=== PATIENT | female | born 1995 | race Caucasian/White ===

== ENCOUNTER 2017-10-20 22:05 | Inpatient (IN) | payer BC ==
[~2017-10-20] VITALS: Ht 160 cm; Wt 49.4 kg
[~2017-10-20 22:05] MED LIST: ALB18R INH; CEFP100T7 PO; CEPH250C37 PO; ENOX60DI10 SQ; ENOX60DI8 SQ; HYDR-385 PO; LOR5/325 PO; NITR-105 PO; OMEP40CA48 PO; ONDA4TAB PO; ONDA4TAB97 PO; PREN-123 PO; PREN-127 PO; SULF-198 PO; TRAM-420 PO; WARF-1 PO; WARF1TAB63 PO
--- NOTE | 2017-10-20 22:08 | ER Report ---
History and Physical Time Seen By MD: 22:06 HPI/ROS CHIEF COMPLAINT: Hyperglycemia HISTORY OF PRESENT ILLNESS: 22-year-old female with a known history of gestational diabetes, pulmonary embolism, asthma, presents with several days of not feeling well. She's had severe nausea. Today she noted her blood glucose was over 500. She was feeling near syncopal. She is concerned she may be . She's not done a home test. Her last menstrual period was 09/15/17. She's had continued bleeding for 3 weeks. She had her control implant removed on 10/02/17. She denies nausea or vomiting. She denies diarrhea or dysuria. He is does not extreme thirst. She also notes increased urination. REVIEW OF SYSTEMS: Respiratory: No cough, no dyspnea. Cardiovascular: No chest pain, no palpitations. Gastrointestinal: No vomiting, no abdominal pain. Musculoskeletal: No back pain. Allergies: Coded Allergies: Penicillins (Verified Allergy, Severe, ANAPHYLAXIS, 09/15/17) Home Meds Reported Medications Vits W-Ca,Fe,Fa(<1MG) ( VITAMINS) 1 Each Tablet, 1 EACH PO DAILY, TAB 10/20/17 Discontinued Reported Medications Albuterol Sulfate (VENTOLIN HFA) 18 Gm Inh, 1-2 PUFF INH 3-4XD, INH 09/13/17 Discontinued Scripts Sulfamethoxazole/Trimet 800-160 Mg Tab (BACTRIM DS TABLET) 1 Each Tablet, 1 TAB PO Q12H, #20 TAB Prov:TERRY LYNN REVERSE UNIT OPERATOR 09/13/17 Past Medical/Surgical History Past medical history: Asthma, pulmonary embolism, twin 1-1/2 years ago, still born 8 months ago Reviewed Nurses Notes: Yes Old Medical Records Reviewed: Yes Hx Smoking: No Smoking Status: Never Smoker Constitutional Vital Sign - Last 24 Hours 10/20/17 10/20/17 10/20/17 10/20/17 22:05 22:14 22:14 22:20 Temp 98.7 Pulse ??? 96 88 Resp 18 B/P (MAP) 131/107 131/107 (115) Pulse Ox 94 99 O2 Delivery Room Air 10/20/17 10/20/17 10/20/17 10/20/17 22:31 22:32 22:35 22:50 Pulse 99 87 B/P (MAP) 123/94 (104) 123/82 (96) Pulse Ox 98 98 10/20/17 10/20/17 10/20/17 10/20/17 23:05 23:08 23:13 23:28 Pulse 83 97 87 Resp 15 14 B/P (MAP) 112/77 (89) Pulse Ox 95 98 98 10/20/17 10/20/17 10/20/17 10/21/17 23:30 23:43 23:58 00:00 Pulse 89 92 Resp 14 15 B/P (MAP) 116/76 (89) 109/67 (81) Pulse Ox 96 99 10/21/17 00:05 Pulse 102 Resp 18 Pulse Ox 100 Physical Exam General Appearance: The patient is alert, has no immediate need for airway protection and no current signs of toxicity. Slightly pale appearing, skin warm and dry HEENT: Pupils equal and round no injection. Oropharynx with moderate erythema, trace exudate, mucous. Membranes are dry Respiratory: Chest is non tender, lungs are clear to auscultation. Cardiac: regular rate and rhythm Gastrointestinal: Abdomen is soft and non tender, no masses, bowel sounds normal. Musculoskeletal: Neck: Neck is supple and non tender. No lymphadenopathy Extremities have full range of motion and are non tender. Skin: No rashes or lesions. DIFFERENTIAL DIAGNOSIS: After history and physical exam differential diagnosis was considered for hyperglycemia, type II diabetes, type I diabetes, diabetic ketoacidosis, viral syndrome, gastroenteritis Medical Decision Making Data Points Result Diagram: 10/20/17231810/20/172318 Laboratory Hematology Test 10/20/17 00:00 10/20/17 22:25 10/20/17 23:19 Urine HCG, Qualitative Negative (NEGATIVE) Urine Color Colorless Urine Clarity Slightly-cloudy Urine pH 5.0 pH (4.8-9.5) Urine Specific [place] 1.026 Urine Protein Negative mg/dL (NEGATIVE) Urine Glucose (UA) 500 mg/dL (NEGATIVE) Urine Ketones 80 mg/dL (NEGATIVE) Urine Blood Small (NEGATIVE) Urine Nitrite Negative (NEGATIVE) Urine Bilirubin Negative (NEGATIVE) Urine Urobilinogen Negative mg/dL (0.2-1.9) Urine Leukocyte Esterase Small (NEGATIVE) Urine RBC 5 /HPF (0-2/HPF) Urine WBC 31 /HPF (0-5/HPF) Urine Squamous Epithelial Cells Many /LPF (</=FEW) Urine Bacteria Negative /HPF (NONE-FEW) Urine Mucus None /HPF (NONE-FEW) Red Blood Count 5.76 M/uL (4.17-5.56) Mean Corpuscular Volume 86.9 fL (80.0-96.0) Mean Corpuscular Hemoglobin 28.9 pg (26.0-33.0) Mean Corpuscular Hemoglobin Concent 33.3 g/dL (32.0-36.0) Red Cell Distribution Width 14.3 % (11.5-14.5) Mean Platelet Volume 8.7 fL (7.2-11.1) Neutrophils (%) (Auto) 58.0 % (39.4-72.5) Lymphocytes (%) (Auto) 31.8 % (17.6-49.6) Monocytes (%) (Auto) 7.8 % (4.1-12.4) Eosinophils (%) (Auto) 1.4 % (0.4-6.7) Basophils (%) (Auto) 1.0 % (0.3-1.4) Nucleated RBC Relative Count (auto) 0.1 /100WBC Neutrophils # (Auto) 4.9 K/uL (2.0-7.4) Lymphocytes # (Auto) 2.7 K/uL (1.3-3.6) Monocytes # (Auto) 0.7 K/uL (0.3-1.0) Eosinophils # (Auto) 0.1 K/uL (0.0-0.5) Basophils # (Auto) 0.1 K/uL (0.0-0.1) Nucleated RBC Absolute Count (auto) 0.01 K/uL Venous Blood pH 7.15 (7.31-7.41) Sodium Level 132 mmol/L (137-145) Potassium Level 3.9 mmol/L (3.5-5.0) Chloride Level 98 mmol/L (98-107) Carbon Dioxide Level 7 mmol/L (22-31) Blood Urea Nitrogen 13 mg/dl (7-18) Creatinine 0.80 mg/dl (0.52-1.04) Glomerular Filtration Rate Calc > 60.0 Random Glucose 500 mg/dl (75-110) Calcium Level 8.6 mg/dl (8.4-10.2) Total Bilirubin 0.4 mg/dl (0.2-1.3) Aspartate Amino Transf (AST/SGOT) 12 U/L (0-35) Alanine Aminotransferase (ALT/SGPT) 33 U/L (0-56) Alkaline Phosphatase 101 U/L (0-126) Total Protein 6.9 gm/dl (6.3-8.2) Albumin 4.4 g/dl (3.5-5.0) Amylase Level < 30 U/L (0-110) Lipase 175 U/L (23-300) Acetone, Qualitative Moderate Chemistry Test 10/20/17 00:00 10/20/17 22:25 10/20/17 23:19 Urine HCG, Qualitative Negative (NEGATIVE) Urine Color Colorless Urine Clarity Slightly-cloudy Urine pH 5.0 pH (4.8-9.5) Urine Specific [place] 1.026 Urine Protein Negative mg/dL (NEGATIVE) Urine Glucose (UA) 500 mg/dL (NEGATIVE) Urine Ketones 80 mg/dL (NEGATIVE) Urine Blood Small (NEGATIVE) Urine Nitrite Negative (NEGATIVE) Urine Bilirubin Negative (NEGATIVE) Urine Urobilinogen Negative mg/dL (0.2-1.9) Urine Leukocyte Esterase Small (NEGATIVE) Urine RBC 5 /HPF (0-2/HPF) Urine WBC 31 /HPF (0-5/HPF) Urine Squamous Epithelial Cells Many /LPF (</=FEW) Urine Bacteria Negative /HPF (NONE-FEW) Urine Mucus None /HPF (NONE-FEW) White Blood Count 8.4 k/uL (4.5-11.0) Red Blood Count 5.76 M/uL (4.17-5.56) Hemoglobin 16.7 g/dL (12.0-16.0) Hematocrit 50.1 % (34.0-47.0) Mean Corpuscular Volume 86.9 fL (80.0-96.0) Mean Corpuscular Hemoglobin 28.9 pg (26.0-33.0) Mean Corpuscular Hemoglobin Concent 33.3 g/dL (32.0-36.0) Red Cell Distribution Width 14.3 % (11.5-14.5) Platelet Count 209 K/uL (150-450) Mean Platelet Volume 8.7 fL (7.2-11.1) Neutrophils (%) (Auto) 58.0 % (39.4-72.5) Lymphocytes (%) (Auto) 31.8 % (17.6-49.6) Monocytes (%) (Auto) 7.8 % (4.1-12.4) Eosinophils (%) (Auto) 1.4 % (0.4-6.7) Basophils (%) (Auto) 1.0 % (0.3-1.4) Nucleated RBC Relative Count (auto) 0.1 /100WBC Neutrophils # (Auto) 4.9 K/uL (2.0-7.4) Lymphocytes # (Auto) 2.7 K/uL (1.3-3.6) Monocytes # (Auto) 0.7 K/uL (0.3-1.0) Eosinophils # (Auto) 0.1 K/uL (0.0-0.5) Basophils # (Auto) 0.1 K/uL (0.0-0.1) Nucleated RBC Absolute Count (auto) 0.01 K/uL Venous Blood pH 7.15 (7.31-7.41) Glomerular Filtration Rate Calc > 60.0 Calcium Level 8.6 mg/dl (8.4-10.2) Total Bilirubin 0.4 mg/dl (0.2-1.3) Aspartate Amino Transf (AST/SGOT) 12 U/L (0-35) Alanine Aminotransferase (ALT/SGPT) 33 U/L (0-56) Alkaline Phosphatase 101 U/L (0-126) Total Protein 6.9 gm/dl (6.3-8.2) Albumin 4.4 g/dl (3.5-5.0) Amylase Level < 30 U/L (0-110) Lipase 175 U/L (23-300) Acetone, Qualitative Moderate Toxicology Test 10/20/17 23:19 Acetone, Qualitative Moderate Urinalysis Test 10/20/17 00:00 10/20/17 22:25 Urine HCG, Qualitative Negative (NEGATIVE) Urine Color Colorless Urine Clarity Slightly-cloudy Urine pH 5.0 pH (4.8-9.5) Urine Specific [place] 1.026 Urine Protein Negative mg/dL (NEGATIVE) Urine Glucose (UA) 500 mg/dL (NEGATIVE) Urine Ketones 80 mg/dL (NEGATIVE) Urine Blood Small (NEGATIVE) Urine Nitrite Negative (NEGATIVE) Urine Bilirubin Negative (NEGATIVE) Urine Urobilinogen Negative mg/dL (0.2-1.9) Urine Leukocyte Esterase Small (NEGATIVE) Urine RBC 5 /HPF (0-2/HPF) Urine WBC 31 /HPF (0-5/HPF) Urine Squamous Epithelial Cells Many /LPF (</=FEW) Urine Bacteria Negative /HPF (NONE-FEW) Urine Mucus None /HPF (NONE-FEW) ED Course/Re-evaluation Clinical Indication for ER IV: Hydration, IV Access ED Course Patient was admitted to an examination room. H&P was done. The differential diagnoses was considered. On clinical examination. Patient with elevated glucose. She's been having thirst and nausea for several days. She has a known history of gestational diabetes with her last . Patient a blood glucose at home noted at 550. Patient presents to the ER for evaluation. Urinalysis shows ketones and glucose. She's got. Metabolic acidosis. Acetone is elevated. Patient's treated with IV fluid hydration, Zofran 4 mg sublingual. Patient was treated with regular insulin 10 units IV. On reevaluation one hour. Her blood glucose came down to 365. Insulin drip was initiated at 5 units per hour. A 2nd liter of normal saline was initiated. Patient was admitted to Dr. Worrell hospitalist on-call, who accepts the patient for admission. 10/20/2017 23:49:48 pm case discussed with Dr. Worrell Decision to Disposition Date: Oct 20, 2017 Decision to Disposition Time: 23:41 Critical Care Time I spent a total of 60 minutes of critical care time in obtaining history, performing a physical exam, bedside monitoring of interventions, collecting and interpreting tests and discussion with consultants but not including time spent performing procedures. Depart Departure Latest Vital Signs Vital Signs Date Time Temp Pulse Resp B/P (MAP) Pulse Ox O2 Delivery O2 Flow Rate FiO2 10/21/17 00:05 102 18 100 10/21/17 00:00 109/67 (81) 10/20/17 22:14 98.7 Room Air Impression: Primary Impression: DKA (diabetic ketoacidoses) Additional Impression: History of gestational diabetes Condition: Improved Disposition: Admitted from ER Referrals: MICHELLE SOLOMON MD (PCP) Problem Qualifiers Primary Impression: DKA (diabetic ketoacidoses) Diabetes mellitus type: type 1 Diabetes mellitus complication detail: without coma Qualified Codes: E10.10 - Type 1 diabetes mellitus with ketoacidosis without coma KIRAN GURROLA DO Oct 20, 2017 22:07
[2017-10-20] MEDS ORDERED: NS(*) 0.9% 1000 ML BAG 1,000 ML IV ONE (22:16)
[2017-10-20] MEDS ORDERED: PREN-127 PO (22:24)
[2017-10-20] MEDS ORDERED: ONDANSETRON 4 MG ODT TABDP SL ONE (22:55)
[2017-10-20] MEDS ORDERED: INSU HUM REG 100 U/ML(ER ONLY) 10 ML VIAL IV ONE (23:20)
[2017-10-20 23:30] LABS: PLATELET COUNT, AUTOMATED 209 K/uL (150-450)
[2017-10-21] VITALS (16 sets, daily range): BP systolic 100–125; BP diastolic 58–81; Ht 160 cm; Wt 49.4 kg
[2017-10-21] MEDS ORDERED: NS(*) 0.9% 100 ML BAG 100 ML ONE (00:11)
[2017-10-21] MEDS ORDERED: NS(*) 0.9% 500 ML BAG 500 ML ONE (01:21)
[2017-10-21] MEDS ORDERED: NS(*) 0.9% 1000 ML BAG 1,000 ML IV PRN (01:35)
[2017-10-21] MEDS ORDERED: ACETAMINOPHEN(*)1000 MG/100 ML 100 ML IVPB PRN ×2 (01:40→01:45)
[2017-10-21] MEDS ORDERED: ONDANSETRON 4 MG/2 ML VIAL IVP PRN (01:45)
[2017-10-21] MEDS ORDERED: INS HUM REG* 100 U/ML(ER ONLY) 100 UNIT in NS(*) 0.9% 100 ML BAG 99 ML IV SCH (01:45)
[2017-10-21] MEDS ORDERED: INSULIN HUM REG 100 UN/ML 3 ML 100 UNIT in NS(*) 0.9% 100 ML BAG 99 ML SC SCH (01:55)
[2017-10-21] MEDS: ONDANSETRON 4 MG/2 ML VIAL IVP PRN ×2 (02:05→16:39)
--- NOTE | 2017-10-21 02:23 | History & Physical ---
History of Present Illness Chief Complaint Polyuria, polydipsia, nausea and weight loss. History of Present Illness Mrs. 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 She has been polyuric and polydipsic and lost almost 10-15 lbs weight for the last month. She had severe nausea. She denies vomiting. She denies diarrhea or dysuria.Today she noted her blood glucose was over 500. She was feeling near syncopal. She is concerned she may be . She's not done a home test. Her last menstrual period was 09/15/17. She's had continued bleeding for 3 weeks. She had her control implant removed on 10/02/17. She was diagnosed with gestational diabetes but she was not taking any DM meds. She was not checking her BS except today and she found out that she had very high blod sugar. I discussed the case with ER-MD and admitted the patient for further evaluation and management. I discussed the case with her and explained her current condition at length. She is feeling nauseous at present.She was started on Regular insulin drip at 5units/h and IVF History Home Meds Reported Medications Vits W-Ca,Fe,Fa(<1MG) ( VITAMINS) 1 Each Tablet, 1 EACH PO DAILY, TAB 10/20/17 Discontinued Reported Medications Albuterol Sulfate (VENTOLIN HFA) 18 Gm Inh, 1-2 PUFF INH 3-4XD, INH 09/13/17 Discontinued Scripts Sulfamethoxazole/Trimet 800-160 Mg Tab (BACTRIM DS TABLET) 1 Each Tablet, 1 TAB PO Q12H, #20 TAB Prov:TERRY LYNN SLIP OPERATOR 09/13/17 Allergies: Coded Allergies: Penicillins (Verified Allergy, Severe, ANAPHYLAXIS, 09/15/17) Hx Smoking: No Smoking Status: Never Smoker Hx Alcohol Use: Yes (OCC) Social Drug Use: Never Review of Systems Constitutional: Weight Loss, No Fever, No Weight Gain, No Chills, No Night Sweats Neurological: Weakness, Dizziness, No Syncope, No Confusion, No Slurred Speech Eyes: No Vision Change, No Loss of Vision, No Photophobia ENT: No Sinus Congestion, No Sore Throat Cardiovascular: No Chest Pain, No Palpitations Respiratory: Shortness of Breath, No Cough, No Wheezing Gastrointestinal: Nausea, No Vomiting, No Diarrhea, No Dysphagia, No Constipation, No Early Satiety, No Melena, Abdominal Pain Genitourinary: No Dysuria, No Hematuria Musculoskeletal: No Pain, No Sprain, No Strain Psychiatric: No Depression, No Anxiety Exam Vital Signs Vital Signs Date Time Temp Pulse Resp B/P (MAP) Pulse Ox O2 Delivery O2 Flow Rate FiO2 10/20/17 23:08 112/77 (89) 10/20/17 23:05 83 95 10/20/17 22:14 98.7 18 Room Air General Appearance: Alert, Awake, No Acute Distress, Afebrile Neuro: No Gross deficits Eyes: PERRLA ENT: Other (dry oral mucosa) Neck: No Masses Cardiovascular: Normal Rhythm & Peripheral Pulses Respiratory: No Respiratory Distress Chest: No Masses GI: Abd Soft and Non-Tender : Normal Musculoskeletal: No Weakness/Pain Extremities: Soft and Non Tender, Warm, Pulses Integumentary: Skin Intact without Lesion / Mass Psych: Alert & Oriented X3, Appropriate Mood & Affect Medical Decision Making Data Points Result Diagram: 10/20/17231810/20/172318 Pre-Admit Course ED Medications reviewed Medical Record Review: Yes Assessment and Plan Problems: (1) DKA (diabetic ketoacidoses) Status: Acute Assessment & Plan: She presented with full blown DKA with triggering factor being the UTI. Her pH was 7.1 and HCO3 is 7 with AG of 27, positive urinary ketones. I will start her on IVF NS at 1000ml/h x2L and then 250ml/h I will start her on Regular Insulin at 5units/h and titrate as needed to control the BS I will place her on Zofran 4mg IV q6h prn for nausea I will keep her on Protonix 40mg IV qd for GIP I will keep her on Lovenox 40mg sq qd for DVTP I will check her BMP q 2h and ABG q 4h She will require Insulin on discharge home (2) Urinary tract infection Status: Acute Assessment & Plan: Her U/A is positive for UTI but she is asymptomatic. Her UTI could have caused DKA. I will start her on Levaquin 500mg IV q daily. 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 I will start her on Lovenox 40mg SQ q daily Central Venous Access Medical Necessity for Access: Hemodynamic Monitoring, IV Access, Medication Administration Critical Time Spent: 1st 30-74 Minutes Venous Thromboembolism VTE Risk Physician Assess for VTE Risk: Yes Patient's VTE Risk: High VTE Diagnostic Test 2 Days Prior to Admit: No Antithrombotics Is Pt On Any Antithrombotics?: No Exam Sepsis Risk: No Definite Risk Problem Qualifiers (1) DKA (diabetic ketoacidoses): Diabetes mellitus type: type 2 (2) Urinary tract infection: Urinary tract infection type: acute cystitis YASMEEN CHAVIRA MD Oct 21, 2017 02:23
[2017-10-21] MEDS ORDERED: INS HUM REG* 100 U/ML(ER ONLY) 100 UNIT in NS(*) 0.9% 100 ML BAG 99 ML IVPB ONE (02:47)
[2017-10-21] MEDS ORDERED: KCL 2 MEQ/ML 20 MEQ/10 ML VIAL 20 MEQ in D5NS(*) 1000 ML BAG 1,000 ML IV PRN (03:00)
[2017-10-21] MEDS ORDERED: NS(*) 0.9% 1000 ML BAG 1,000 ML IV ONE (03:15)
[2017-10-21] MEDS: LEVOFLOXACIN/D5W*500 MG/100 ML 100 ML IVPB SCH (03:39)
[2017-10-21] MEDS ORDERED: KCL (*) 20 MEQ/100 ML PREMIX 100 ML IV ONE ×3 (04:10→08:10)
[2017-10-21] MEDS ORDERED: KCL 2 MEQ/ML 20 MEQ/10 ML VIAL 20 MEQ in D5 1/2 NS(*) 1000 ML BAG 1,000 ML IV PRN (07:00)
[2017-10-21] MEDS ORDERED: KCL/D1/2NS 20 MEQ 1000 ML 1,000 ML IV PRN (08:10)
[2017-10-21] MEDS ORDERED: MAGNESIUM SUL* 2 GM/50 ML IVPB 50 ML IVPB ONE (09:00)
[2017-10-21] MEDS ORDERED: ENOXAPARIN 40 MG/0.4ML SYR SC SCH (09:00)
[2017-10-21] MEDS ORDERED: PANTOPRAZOLE SOD 40 MG IV VIAL IVP SCH (09:00)
--- NOTE | 2017-10-21 09:05 | Hospitalist Progress Note ---
Subjective Progress Notes Subjective This patient was admitted for DKA. She had no acute changes since admission. Patient Complains of: Cardiovascular: No: Chest Pain Respiratory: No: Shortness of Breath Physical Exam Vital Signs Date Time Temp Pulse Resp B/P (MAP) Pulse Ox O2 Delivery O2 Flow Rate FiO2 10/21/17 07:10 99 Room Air 10/21/17 07:06 84 20 106/59 (75) 10/21/17 06:00 98.1 Neuro: No Gross deficits Cardiovascular: Regular Rate and Rhythm Respiratory: Clear to Auscultation Result Diagram: 10/20/17 2319 10/21/17 0610 Assessment and Plan Problems: (1) DKA (diabetic ketoacidoses) Status: Acute Assessment & Plan: She presented with full blown DKA with triggering factor being the UTI. Her pH was 7.1 and HCO3 is 7 with AG of 27, positive urinary ketones. I will start her on IVF NS at 1000ml/h x2L and then 250ml/h I will start her on Regular Insulin at 5units/h and titrate as needed to control the BS I will place her on Zofran 4mg IV q6h prn for nausea I will keep her on Protonix 40mg IV qd for GIP I will keep her on Lovenox 40mg sq qd for DVTP I will check her BMP q 2h and ABG q 4h She will require Insulin on discharge home She remains on an insulin infusion this morning. Her sugars have improved, but she still remains acidotic. We will continue the IV insulin this morning and repeat labs later today. (2) Urinary tract infection Status: Acute Assessment & Plan: Her U/A is positive for UTI but she is asymptomatic. Her UTI could have caused DKA. I will start her on Levaquin 500mg IV q daily. She was started on levofloxacin at admission. A urine culture is pending. 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 She is not on terminal system operator anticoagulation. We currently have her on prophylactic Lovenox. (4) Hypokalemia Assessment & Plan: She is currently receiving IV potassium. (5) Hypomagnesemia Assessment & Plan: We will be treating her with IV magnesium today. A repeat level is pending for later today. Central Venous Access Medical Necessity for Access: Hemodynamic Monitoring, IV Access, Medication Administration Exam Sepsis Risk: No Definite Risk Problem Qualifiers (1) DKA (diabetic ketoacidoses): Diabetes mellitus type: type 1 Diabetes mellitus complication detail: without coma Qualified Codes: E10.10 - Type 1 diabetes mellitus with ketoacidosis without coma (2) Urinary tract infection: Urinary tract infection type: acute cystitis LANCE RIBERA DO Oct 21, 2017 09:05
[2017-10-21] MEDS: ENOXAPARIN 40 MG/0.4ML SYR SC SCH (09:27)
[2017-10-21] MEDS ORDERED: LEVOFLOXACIN/D5W*500 MG/100 ML 100 ML IVPB SCH (10:00)
[2017-10-21] MEDS: PANTOPRAZOLE SOD 40 MG IV VIAL IVP SCH (11:10)
[2017-10-21] MEDS ORDERED: D5 1/2 NS(*) 1000 ML BAG 1,000 ML IV PRN ×2 (14:30→16:44)
[2017-10-21] MEDS: KCL (*) 20 MEQ/100 ML PREMIX 100 ML IV SCH ×2 (16:40→19:32)
[2017-10-21] MEDS ORDERED: INSULIN GLARGINE 100 U/ML 3 ML PEN SUBQ ONE (18:00)
[2017-10-21] MEDS: INSULIN HUM LISPRO 100 UN/ML 3 ML VIAL SUBQ PRN ×2 (19:58→22:13)
[2017-10-21] MEDS ORDERED: CLOTRIMAZOLE 1% VAG CR 45 GM PV SCH (21:00)
[2017-10-22 00:15] VITALS: BP 110/82
[2017-10-22] MEDS: LEVOFLOXACIN/D5W*500 MG/100 ML 100 ML IVPB SCH (01:41)
[2017-10-22 02:00] VITALS: BP 106/65
[2017-10-22 04:00] VITALS: BP 102/60
[2017-10-22 06:00] VITALS: BP 110/72
[2017-10-22] MEDS: KCL (*) 20 MEQ/100 ML PREMIX 100 ML IV SCH ×2 (06:20→07:25)
[2017-10-22] MEDS: INSULIN HUM LISPRO 100 UN/ML 3 ML VIAL SUBQ PRN ×2 (06:27→07:49)
[2017-10-22 08:00] VITALS: BP 108/65
[2017-10-22] MEDS ORDERED: POTA20TA94 PO (08:24)
[2017-10-22] MEDS ORDERED: LEVO-85 PO (08:25)
[2017-10-22] MEDS ORDERED: [UNRECOGNIZED DRUG - OTHER] (08:26)
[2017-10-22] MEDS ORDERED: LANI SUBQ (08:26)
[2017-10-22] MEDS ORDERED: CLOT45CR43 VG (08:53)
[2017-10-22] MEDS ORDERED: POTASSIUM CHL 20 MEQ TABCR PO SCH (09:00)
[2017-10-22] MEDS: PANTOPRAZOLE SOD 40 MG IV VIAL IVP SCH (09:00)
[2017-10-22] MEDS: ENOXAPARIN 40 MG/0.4ML SYR SC SCH (09:00)
--- NOTE | 2017-10-22 10:29 | Hospitalist Depart ---
Discharge Summary Reason for Hosp/Final Diag: (1) DKA (diabetic ketoacidoses) Status: Acute Hospital Course & Plan: Mrs. Powell is a 22-year-old female with a known history of Gestational Diabetes, Exercise induced Asthma, May-Thurner Syndrome with LLE-DVT and Pulmonary Embolism presents with several days of not feeling well. She has been polyuric and polydipsic and lost almost 10-15 lbs weight for the last month. She had severe nausea. She denies vomiting. She denies diarrhea or dysuria.Today she noted her blood glucose was over 500. She was feeling near syncopal. She is concerned she may be . She's not done a home test. Her last menstrual period was 09/15/17. She's had continued bleeding for 3 weeks. She had her control implant removed on 10/02/17. She was diagnosed with gestational diabetes but she was not taking any DM meds. She was not checking her BS except today and she found out that she had very high blod sugar. I discussed the case with ER-MD and admitted the patient for further evaluation and management. I discussed the case with her and explained her current condition at length. She is feeling nauseous at present.She was started on Regular insulin drip at 5units/h and IVF She presented with full blown DKA with triggering factor being the UTI. Her pH was 7.1 and HCO3 is 7 with AG of 27, positive urinary ketones. Plan: I will start her on IVF NS at 1000ml/h x2L and then 250ml/h I will start her on Regular Insulin at 5units/h and titrate as needed to control the BS I will place her on Zofran 4mg IV q6h prn for nausea I will keep her on Protonix 40mg IV qd for GIP I will keep her on Lovenox 40mg sq qd for DVTP I will check her BMP q 2h and ABG q 4h She will require Insulin on discharge home 10/22: She received Lantus 25units yesterday and her Regular Insulin drip was stopped. Her AG and HCO3 were back to normal and she is feeling better and tolerating the diet without N/V and abdominal pain etc. Her BS is around 200-250mg/dl. She will require diabetic education and then she will be d/c'd home. I will increase her Lantus to 30units at HS and she will check her BS at home. She will be followed by Gamal Gross. (2) Urinary tract infection Status: Acute Hospital Course & Plan: Her U/A is positive for UTI but she is asymptomatic. Her UTI could have caused DKA. I will start her on Levaquin 500mg IV q daily. She was started on levofloxacin at admission. A urine culture is pending. 10/22: I will send her home on Levaquin for 3 more days for her UTI (3) May-Thurner syndrome Status: Acute Hospital Course & Plan: She has h/o L-Iliac vein compression with DVT and massive pulmonary embolism with cardiopulmonary arrest and resuscitated x5, She also has Factor 5 Leiden deficiency. She is not on shelter anticoagulation. We currently have her on prophylactic Lovenox. (4) Hypokalemia Status: Acute Hospital Course & Plan: She is currently receiving IV potassium. 10/22: She will receive PO KCL today and will take 20meq bid for 2 flowers days. (5) Hypomagnesemia Status: Resolved Hospital Course & Plan: We will be treating her with IV magnesium today. A repeat level is pending for later today. Departure Weight (Pounds): 109 Weight (Ounces): 8.0 Result Diagram: 10/20/17 2319 10/22/17 0525 Condition: Improved Discharge: Home, Self Care Time Spent: > 30 min Discharge Instructions Home Meds Reported Medications Clotrimazole (CLOTRIMAZOLE) 45 Gm Cream.appl, 45 GM VG QHS 10/22/17 Insulin Glargine (LANTUS) 100 Unit/Ml Soln, 30 UNIT SUBQ QHS, ML 10/22/17 Levofloxacin 500 Mg Tab (LEVAQUIN 500 MG TAB) 500 Mg Tablet, 500 MG PO DAILY, # 3 TAB 10/22/17 Potassium Chloride (POTASSIUM CHLORIDE) 20 Meq Tab.er.prt, 20 MEQ PO BID 10/22/17 Vits W-Ca,Fe,Fa(<1MG) ( VITAMINS) 1 Each Tablet, 1 EACH PO DAILY, TAB 10/20/17 Discontinued Reported Medications Albuterol Sulfate (VENTOLIN HFA) 18 Gm Inh, 1-2 PUFF INH 3-4XD, INH 12/21/17 Discontinued Scripts Sulfamethoxazole/Trimet 800-160 Mg Tab (BACTRIM DS TABLET) 1 Each Tablet, 1 TAB PO Q12H, #20 TAB Prov:TERRY LYNN GAGE 09/13/17 Diet: Diabetic Activity: As Tolerated Special Instructions: Call to make appointment with Gamal Blount at [facility] [phone] also infmormation for the [facility] [place] [address] [facility] [address] [phone] Copies to: GAMAL SALINAS APRN [employer]-C Venous Thromboembolism Antithrombotics Is Pt On Any Antithrombotics?: No Problem Qualifiers (1) DKA (diabetic ketoacidoses): Diabetes mellitus type: type 1 Diabetes mellitus complication detail: without coma Qualified Codes: E10.10 - Type 1 diabetes mellitus with ketoacidosis without coma (2) Urinary tract infection: Urinary tract infection type: acute cystitis YASMEEN CHAVIRA MD Oct 22, 2017 10:29
[2017-10-22] MEDS ORDERED: INSULIN GLARGINE 100 U/ML 3 ML PEN SUBQ SCH (21:00)
--- NOTE | 2017-10-23 08:47 | Medical Nutrition Therapy ---
Nutrition Anthropometrics Height (Inches): 63.00 Height (Calculated Centimeters: 160.468252 Weight (Pounds): 109 Weight (Calculated Kilograms): 49.668 BMI Calculated: 19.31 Emiliano Nutrition Score: Adequate Emiliano Nutrition Risk Score: 21 Dietary Referral Nutrition Risk Factors: Nutrition Risk Comment: Physical Findings Physical Appearance: WNL 19.4 Skin Appearance Skin Appearance: Edema Edema Location Modifier: Edema Location: Type of Edema: Degree of Edema: Gastrointestinal Symptoms GI Symtoms: Nausea, Vomiting Tube Present: Bowel Sounds: Recent Bowel Pattern: Stool Characteristics: Nutritional Diagnosis Nutritional Risk Acuity 2: DKA Nutritional Risk Acuity 3: Nausea, Weight Loss Past Medical History: Gestational Diabetes, 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 Energy Requirement: 1590 ([place] St Jeor) Protein Requirement: 50 (1 g/kg) Fluid Requirement: 1500 (30 ml/kg) Diet Type: Diabetic Nutrition Intervention: Cont diet as ordered, Encourage intake Nutritional Education Nutrition Education Topic: Diabetic Nutrition Learning Readiness: Eager Teaching Methods: Discussion, Handout Response to Teaching: Verbalize understanding Teaching Recipient: Patient, Significant Other Nutrition Counselin/29 Provided diabetes education for pt and spouse. Pt stated that she has already downloaded an saloni to begin carb counting. I recommended 45-60 grams of carbs per meal (3-4 servings) and 15 grams of carbs per snack. I provided a carb counting handout and discussed proper serving sizes. Pt also described what she is currently eating each day and I made recommendations to adjust, such as limiting fruit juice unless she is hypoglycemic. We discussed hypo/hyperglycemia symptoms and how to manage each situation. Also provided information about outpatient diabetes clinic and support group. Pt and spouse were both interested and plan to find a primary care provider in the area. CMG Insertion/Removal: No Nutrition Monitoring & Eval RD Patient Assessment Time: [address] Assessment Type: RD Assessment Patient Nutrition Acuity: 2-Moderate Follow Up Date: Oct 24, 2017 Nutritional Comment: 10/21 Pt admitted for DKA. Pt had polydipsia and polyurea with 10-15# wt loss past month. Pt has hx of gestational DM. Admitting BG 589 has decreased to 200's. Alb 4.4, K+ 1.7, Mg 1.5. Pt is receiving Mg and K+ supplments. Pt currently is NPO with N/V. Will provide diabetic education when diet advances and pt is appropriate. 10/22 Pt upgraded to ADA diet with 100% intake of reg portion x 1 meal. Provided diabetes education in room including carb counting and hypo/hyperglycemia management. Recommended outpatient classes or support group. Pt states she has experience monitoring BG due to previous gestational diabetes. Notable labs include Na 131, K+ 3.1, BUN 6, and Ca 7.7. Most recent blood sugar was 218. Pt no longer receiving Mg or K+ supplements. Discharging today. Will continue to monitor and provide additional diabetes education as needed. PREETI KOTHARI Oct 22, 2017 09:08
[2017-10-29] MEDS ORDERED: INSU100V24 SQ (10:48)
== END 2017-10-22 11:45 | disposition home or self-care (01) | DRG 638 ==
LOC: ER 22:17 → ICU 10-21 00:05
PROVIDERS: ADMIT Specialist; ATTEND Specialist
DX: E11.10 Type 2 diabetes mellitus with ketoacidosis without coma (principal); I87.1 Compression of vein; N30.00 Acute cystitis without hematuria; D68.2 Hereditary deficiency of other clotting factors; J45.990 Exercise induced bronchospasm; E83.42 Hypomagnesemia; E87.6 Hypokalemia; Z86.718 Personal history of other venous thrombosis and embolism; Z91.19 Patient's noncompliance with other medical treatment and regimen; Z86.711 Personal history of pulmonary embolism
CPT/HCPCS: 36415; 36416; 36600; 81001; 81025; 82009; 82040; 82150; 82247; 82310; 82374; 82435; 82565; 82800; 82803; 82947; 82948; 83690; 83735; 84075; 84100; 84132; 84155; 84295; 84450; 84460; 84520; 85025; 96361; 96365; 99285; 99291; C9113; J0131; J1650; J1815; J1956; J2405; J3475; J3480; J7030; J7042; J7050; S0119

== ENCOUNTER → 2017-10-26 | Outpatient (CLI) | payer BC ==
[2017-10-21 10:26] VITALS: BMI 19.3
[~2017-10-26] MED LIST changes: +CLOT45CR43 VG; +INSU100V24 SQ; +LANI SUBQ; +LEVO-85 PO; +POTA20TA94 PO; +[UNRECOGNIZED DRUG - OTHER]
== END ==
LOC: LAB 12:43
DX: E10.9 Type 1 diabetes mellitus without complications (principal)
CPT/HCPCS: 36415; 83036; 84443

== ENCOUNTER → 2018-03-29 | Outpatient (CLI) | payer MEDICAID ==
[2017-10-21 10:26] VITALS: BMI 19.3
[~2018-03-29] MED LIST changes: +WARF1TAB15 PO; -WARF1TAB63 PO
[2018-03-29 11:07] LABS: PLATELET COUNT, AUTOMATED 258 K/uL (150-450)
== END ==
LOC: LAB 09:37
PROVIDERS: ATTEND Nurse Practitioner Primary Care
DX: R59.1 Generalized enlarged lymph nodes (principal)
CPT/HCPCS: 36415; 82040; 82247; 82310; 82374; 82435; 82565; 82947; 84075; 84132; 84155; 84295; 84450; 84460; 84520; 85025; 86308; 87081